=== PATIENT | female | born 1945 | race Caucasian/White ===

== ENCOUNTER → 2020-07-13 | Outpatient (CLI) | payer MEDICARE ==
[~2020-07-13] MED LIST: GADOBENATE DIMEGLUMINE 1 ML IV ONE; SODIUM CHLORIDE 0.9% 50ML 50 ML ONE
[2020-07-13 12:43] LABS: CREATININE, SERUM 1.02 mg/dL (0.57-1.11)
--- NOTE | 2020-07-13 18:04 | Diagnostic Imaging Report ---
EXAMINATION: Brain MRI and MR angiogram of the Neck CLINICAL HISTORY: 75-year-old female was transient ischemic attack. COMPARISON: None available TECHNIQUE: Brain: Sagittal T2; axial DWI, T2, FLAIR, T1-IR, T2 gradient echo; coronal FLAIR. Post contrast axial sagittal and coronal T1 fat sat. MRAs: 2D-TOF images were obtained of the neck without and with contrast. Intravenous Contrast: 16 mL of MultiHance. BRAIN MRI FINDINGS: Parenchyma: 1. Few scattered and mildly confluent periventricular white matter T2 hyperintense foci, most likely correspond to nonspecific chronic microvascular ischemic changes. 2. No mass, hemorrhage, acute or chronic infarcts. Skull: Unremarkable. Vessels: Expected flow voids present in the major arteries and dural sinuses. Extra-axial spaces: No abnormal signal intensity or mass effect. Brain volume: Within normal limits for age. Ventricles: No hydrocephalus or displacement. Foramen magnum: Unremarkable. Sella: Unremarkable. Paranasal / mastoid sinuses: No significant inflammatory disease. MRA OF THE NECK: If present, stenosis of the carotid bulbs is measured based on NASCET criteria i.e area of maximum stenosis compared to the cervical ICA distal to the bulb. Aortic arch and origin of the vessels: Unremarkable. Mild atherosclerotic plaque in the bilateral carotid bifurcations results in mild narrowing. Right Carotid Artery: The common carotid, carotid bulb, internal and external carotid arteries at the level of the neck are normal in caliber, and patent, no evidence of stenoses. Left Carotid Artery: The common carotid, carotid bulb, internal and external carotid arteries at the level of the neck are normal in caliber, and patent, no evidence of stenoses. Vertebral Arteries: Both are normal in morphology and caliber. Both are codominant. No significant stenosis is seen. IMPRESSION: Brain MRI: 1. No acute infarcts. 2. Mild white matter chronic microvascular ischemic changes. MR angiogram of the neck: 1. No large vessel occlusion or hemodynamically significant stenosis of the carotid or vertebral arteries. 2. Mild atherosclerotic plaque in the bilateral carotid bifurcations without significant stenoses. Signed by: Dr. Evie Denise M.D. on 07/13/2020 6:01 PM
== END ==
LOC: MRI 12:04
DX: G45.9 Transient cerebral ischemic attack, unspecified (principal)
CPT/HCPCS: 36415; 70549; 70553; 82565; 84520; A9577